=== PATIENT | male | born 1960 | race Caucasian/White ===

== ENCOUNTER 2021-06-27 12:26 | Inpatient (IN) ==
[2021-06-27 12:33] VITALS: BMI 29.2
[2021-06-27] MEDS ORDERED: PEPCID 20 MG IV PREMIX* 20 MG/50 ML BAG IV ONE (13:36)
--- NOTE | 2021-06-27 13:38 | DR.ABDMALE ---
HPI Time seen Time Seen by Provider: 06/27/21 13:24 PCP Primary Care Physician: GERALDO Complaint Chief Complaint:: PT A/CO LOWER ABD CRAMPING, WITH BLOODY STOOL. PATIENT STATES IT WAS A GROSS AMOUNT THAT WAS RED AND [place] IN COLOR DESCRIBED. PATIENT STATES HE HAS SINCE BEEN HAVING DIAHRREA HE STATES HE IS HAVING STOOL MIXED WITH BLOOD. PATIENT STATES HE HAS HAD X 2-3 BM THIS MORNING. COVID-19 Coronavirus risk:travel/contact w/high risk person: No Has patient experienced Coronavirus symptoms: Yes Coronavirus symptoms experienced: Fever Mode of arrival Mode of Arrival: Ambulatory Timing Onset of Chief Complaint: 06/26/21 PMH PMH Past Medical History: Yes Past Medical History: Depression, Dyslipidemia and Hypertension Past Medical History Comment: PROSTATE ISSUES Past Surgical History: No Family History History of Family Medical Conditions: No Social History Does any household member use tobacco: No Alcohol Use: Occasionally Do you use any recreational Drugs:: Yes Lives With: Mom Lives Where: Home Travel Risk Coronavirus risk:travel/contact w/high risk person: No Has patient experienced Coronavirus symptoms: Yes Coronavirus symptoms experienced: Fever Infectious screening In the last 2 months have you had wt loss of >10#?: NO Have you had fever, night sweats or hemotysis?: No Have you traveled outside the country in the last 6 months?: No Isolation: Standard PE Vital Signs Vital Signs: Temp Pulse Pulse Resp BP BP Pulse Ox 06/27/21 16:00 78 22 106/55 99 06/27/21 15:45 77 20 119/59 99 06/27/21 15:30 79 20 96/63 99 06/27/21 15:00 79 20 88/51 99 06/27/21 14:30 82 20 102/58 99 06/27/21 14:00 78 20 110/62 99 06/27/21 13:30 79 20 84/62 96 06/27/21 12:27 99.9 F H 100 H 20 109/70 95 ROR Labs Reviewed Result Diagrams: 06/28/21 03:54 06/28/21 03:54 Laboratory: WBC 15.8 X10^3/uL (3.6-10.0) H 06/27/21 14:00 RBC 4.84 X10^6/uL (4.7-6.0) 06/27/21 14:00 Hgb 14.0 g/dL (13.5-18.0) 06/27/21 14:00 Hct 41.5 % (42.0-54.0) L 06/27/21 14:00 MCV 85.6 fL (80.0-100.0) 06/27/21 14:00 MCH 29.0 pg (27.0-34.0) 06/27/21 14:00 MCHC 33.8 g/dL (33.0-35.0) 06/27/21 14:00 RDW 14.1 % (11.6-16.5) 06/27/21 14:00 Plt Count 254 X10^3/uL (150.0-450.0) 06/27/21 14:00 MPV 7.8 fL (7.4-11.0) 06/27/21 14:00 Neut % (Auto) 87.2 % (42.0-75.0) H 06/27/21 14:00 Lymph % (Auto) 8.2 % (21.0-51.0) L 06/27/21 14:00 [place] % (Auto) 4.5 % (0.0-13.0) 06/27/21 14:00 Eos % (Auto) 0.0 % (0.9-2.9) L 06/27/21 14:00 Baso % (Auto) 0.1 % (0.2-1.0) L 06/27/21 14:00 Neut # (Auto) 13.7 x10^3/uL (2.2-4.8) H 06/27/21 14:00 Lymph # (Auto) 1.3 X10^3/uL (1.3-2.9) 06/27/21 14:00 [place] # (Auto) 0.7 x10^3/uL (0.3-0.8) 06/27/21 14:00 Eos # (Auto) 0.0 x10^3/uL (0.0-0.2) 06/27/21 14:00 Baso # (Auto) 0.0 X10^3/uL (0.0-0.1) 06/27/21 14:00 Absolute Nucleated RBC 0.0 /100WBC 06/27/21 14:00 PT 13.4 SECONDS (11.8-14.3) 06/27/21 14:00 INR Target Range - 06/27/21 14:00 INR 1.08 (0.8-1.3) 06/27/21 14:00 APTT 31.1 SECONDS (22.9-36.5) 06/27/21 14:00 PTT Comment - 06/27/21 14:00 Sodium 137 mmol/L (136-145) 06/27/21 14:00 Corrected Sodium 137 mmol/L (136-145) 06/27/21 14:00 Potassium 3.6 mmol/L (3.5-5.1) 06/27/21 14:00 Chloride 100 mmol/L (98-107) 06/27/21 14:00 Carbon Dioxide 28.2 mmol/L (21-32) 06/27/21 14:00 BUN 19 mg/dL (7-18) H 06/27/21 14:00 Creatinine 1.71 mg/dL (0.70-1.30) H 06/27/21 14:00 Est GFR (MDRD) Af Amer 52 (>60) L 06/27/21 14:00 Est GFR (MDRD) Non-Af 43 (>60) L 06/27/21 14:00 Glucose 119 mg/dL (65-99) H 06/27/21 14:00 Calcium 9.0 mg/dL (8.5-10.1) 06/27/21 14:00 Corrected Calcium TNP 06/27/21 14:00 Total Bilirubin 0.90 mg/dL (0.2-1.0) 06/27/21 14:00 AST 21 Units/L (15-37) 06/27/21 14:00 ALT 29 Units/L (12-78) 06/27/21 14:00 Alkaline Phosphatase 67 Units/L (46-116) 06/27/21 14:00 Total Protein 7.4 g/dL (6.4-8.2) 06/27/21 14:00 Albumin 3.6 g/dL (3.4-5.0) 06/27/21 14:00 Globulin 3.8 g/dL (2.5-4.5) 06/27/21 14:00 Albumin/Globulin Ratio 0.9 Ratio (1.1-2.1) L 06/27/21 14:00 Amylase 51 Units/L (25-115) 06/27/21 14:00 Lipase 103 Units/L (73-393) 06/27/21 14:00 Vasoact Intest Polypep Cancelled 06/27/21 14:00 Opioid Opioid Risk Tool Age (Doc box if 16-45): No History of Preadolescent Sexual Abuse: No Total: 0 Total Score Risk Category: Low Risk Copyright: Scott SHELTON predicting aberrant behaviors
[2021-06-27] MEDS ORDERED: NS 1,000 ML IV 1,000 ML ONE (13:41)
[2021-06-27] MEDS ORDERED: PEPCID 20 MG IV PREMIX* 50 ML IV ONE (13:42)
[2021-06-27] MEDS ORDERED: NS 1,000 ML IV 1,000 ML IV SCH (14:00)
[2021-06-27 14:20] LABS: BASOPHILS % (AUTO) 0.1 % (0.2-1.0); HEMATOCRIT 41.5 % (42.0-54.0); LYMPHOCYTES # (AUTO) 1.3 X10^3/uL (1.3-2.9); LYMPHOCYTES % (AUTO) 8.2 % (21.0-51.0); MEAN CORPUSCULAR HGB CONC 33.8 g/dL (33.0-35.0); MEAN CORPUSCULAR VOLUME 85.6 fL (80.0-100.0); MEAN PLATELET VOLUME 7.8 fL (7.4-11.0); MONOCYTES # (AUTO) 0.7 x10^3/uL (0.3-0.8); MONOCYTES % (AUTO) 4.5 % (0.0-13.0); NEUTROPHILS # (AUTO) 13.7 x10^3/uL (2.2-4.8); NEUTROPHILS % (AUTO) 87.2 % (42.0-75.0); PLATELET COUNT 254 X10^3/uL (150.0-450.0); RED BLOOD COUNT 4.84 X10^6/uL (4.7-6.0); RED CELL DISTRIBUTION WIDTH 14.1 % (11.6-16.5); WHITE BLOOD COUNT 15.8 X10^3/uL (3.6-10.0)
[2021-06-27 14:39] LABS: ALANINE AMINOTRANSFERASE 29 Units/L (12-78); ALBUMIN 3.6 g/dL (3.4-5.0); ALKALINE PHOSPHATASE 67 Units/L (46-116); AMYLASE 51 Units/L (25-115); ASPARTATE AMINO TRANSFERASE 21 Units/L (15-37); BLOOD UREA NITROGEN 19 mg/dL (7-18); CARBON DIOXIDE 28.2 mmol/L (21-32); CHLORIDE 100 mmol/L (98-107); COR NA(FOR HYPERGLY) 137 mmol/L (136-145); CREATININE 1.71 mg/dL (0.70-1.30); LIPASE 103 Units/L (73-393); SODIUM 137 mmol/L (136-145); TOTAL PROTEIN 7.4 g/dL (6.4-8.2); eGFR NON BLACK RACES 43 (>60)
--- NOTE | 2021-06-27 14:53 | CT ---
HISTORYABD CRAMPING, WITH BLOODY STOOL. PATIENT STATES HE HAS SINCE BEEN HAVING DIAHRREA HE STATES HE IS HAVING STOOL MIXED WITH BLOOD. PATIENT STATES HE HAS HAD X 2-3 BM THIS MORNING. .brSTUDYABDOMEN/PELVIS W/O CONCOMPARISONNone.TECHNIQUEMultiple axial images of the abdomen and pelvis were obtained from the lung bases to the pubic symphysis without the administration of IV contrast. Dose reduction techniques including Automated Exposure Control (AEC) and adjustment of mA and kV were utilized.FINDINGSLack of contrast limits evaluation.There is a right lower lobe pleural based calcified 8 mm granuloma. Otherwise the lung bases appear clear. Heart is normal in size. There is hepatic steatosis. The gallbladder, spleen, pancreas, and adrenal glands have a benign noncontrast appearance. There are few left nephrolithiasis measuring up to 8 mm at the lower pole. There is a 5 mm right renal pelvis calculus. No hydronephrosis. Urinary bladder is mostly decompressed. The prostate is normal in size. There is mild colonic wall thickening at the sigmoid colon and rectum. There is perforation at the sigmoid colon with moderate fat stranding in free air. See image 60 series 3 for example. The colon wall measures 9 mm in this location. There is colonic diverticulosis. The appendix appears normal. Negative for bowel obstruction. Moderately atherosclerotic normal caliber abdominal aorta. No abscess at this point. Small fat containing umbilical hernia. No acute osseous abnormality. Compression fracture at T12 with approximately 40 percent height loss anteriorly is likely chronic.IMPRESSIONPerforation of the sigmoid colon with moderate free air and fat stranding. This may be due to perforated diverticulitis or neoplasm. Recommend emergent surgical consultation.Other incidental findings as above.Electronically signed by: Adrien Bullock (Jun 27, 2021 14:52:41)
[2021-06-27] MEDS ORDERED: NS 100 ML IV + SPIKE MINIBAG* 100 ML IV ONE (16:06)
[2021-06-27] MEDS ORDERED: ZOSYN VIAL 3.375 GRAMS IV ONE (16:06)
--- NOTE | 2021-06-27 16:27 | RAD ---
HISTORYPRE OP BOWEL SX HTN, DYSLIPIDEMIASTUDYCHEST, 1 VIEWCOMPARISONNoneFINDINGSThe trachea is midline. The cardiac silhouette is unremarkable. The lungs are clear without focal infiltrate or effusion. The bony thorax is unremarkable.IMPRESSIONNo acute cardiopulmonary findings .Electronically signed by: Nereida Segura (Jun 27, 2021 16:26:17)
[2021-06-27] MEDS: ZOSYN VIAL 3.375 GRAMS 3.375 G in NS 100 ML IV + SPIKE MINIBAG* 100 ML IV SCH ×2 (16:32→21:38)
[2021-06-27] MEDS ORDERED: D5W 1,000 ML IV 0 ML IV ONE (16:42)
[2021-06-27] MEDS ORDERED: D5 1/2 NS 1,000 ML 1,000 ML IV ONE (16:48)
[2021-06-27] MEDS ORDERED: FENTANYL VIAL INJ 250 mcg ONE (16:59)
[2021-06-27] MEDS ORDERED: BRIDION ONE (16:59)
[2021-06-27] MEDS ORDERED: LR 1,000 ML IV 1,000 ML IV ONE (16:59)
[2021-06-27] MEDS ORDERED: ZEMURON 50 MG VIAL ONE (17:00)
[2021-06-27] MEDS ORDERED: D5 1/2 NS 1,000 ML 1,000 ML IV SCH ×2 (17:00→19:20)
[2021-06-27] MEDS ORDERED: VERSED ONE (17:34)
[2021-06-27] MEDS ORDERED: DIPRIVAN VIAL ONE (17:34)
[2021-06-27] MEDS ORDERED: EPHEDRINE SULFATE INJ ONE (17:34)
[2021-06-27] MEDS ORDERED: ZOFRAN INJ 4 MG VIAL ONE (17:34)
[2021-06-27] MEDS ORDERED: TORADOL 30 MG VIAL ONE (17:34)
[2021-06-27] MEDS ORDERED: SUPRANE ONE ×2 (17:34→17:56)
[2021-06-27] MEDS ORDERED: NEO-SYNEPHRINE INJ ONE (17:34)
[2021-06-27] MEDS ORDERED: XYLOCAINE 2 % (PLAIN) ONE (17:34)
[2021-06-27] MEDS ORDERED: OFIRMEV IV 1000 MG VIAL 1,000 MG/100 ML VIAL IV ONE (18:09)
[2021-06-27] MEDS ORDERED: ANCEF VIAL 1 GRAM ONE (18:09)
[2021-06-27] MEDS ORDERED: BACTROBAN TOPICAL OINT ONE (18:13)
[2021-06-27] MEDS ORDERED: PEPCID 20 MG IV PREMIX* 20 MG/50 ML BAG IV PRN (18:25)
[2021-06-27] MEDS ORDERED: ZOFRAN INJ 4 MG VIAL IVP PRN ×2 (18:25→18:50)
[2021-06-27] MEDS ORDERED: DILAUDID INJ IVP PRN ×2 (18:25→18:50)
[2021-06-27] MEDS ORDERED: PHENERGAN INJ 25 MG IM PRN (18:50)
[2021-06-27] MEDS ORDERED: BENADRYL INJ 50 MG VIAL IVP PRN (18:50)
[2021-06-27] MEDS ORDERED: REGLAN INJ 10 MG VIAL IVP PRN (18:50)
[2021-06-27] MEDS ORDERED: BARHEMSYS INJ IVP PRN (18:50)
[2021-06-27 19:14] LABS: BILIRUBIN,URINE NEGATIVE (NEGATIVE); BLOOD/HEMOGLOBIN,URINE 1+ (NEGATIVE); GLUCOSE, URINE 1+ (NEGATIVE); KETONES,URINE NEGATIVE (NEGATIVE); LEUKOCYTE ESTERASE ,URINE NEGATIVE (NEGATIVE); NITRITES,URINE NEGATIVE (NEGATIVE); PROTEIN,URINE 2+ (NEGATIVE); UROBILINOGEN,URINE NORMAL (NORMAL)
[2021-06-27] MEDS: D5 1/2 NS 1,000 ML 1,000 ML IV SCH (19:30)
[2021-06-27 19:35] LABS: APPEARANCE,URINE CLEAR (CLEAR); COLOR,URINE PALE YELLOW (YELLOW)
[2021-06-27 19:37] LABS: AMORPHOUS SEDIMENT,UR TRACE /HPF (NEGATIVE); BACTERIA,URINE TRACE /HPF (NEGATIVE); SQUAMOUS EPITHELIAL CELL,UR RARE /HPF (NEGATIVE)
[2021-06-27 20:13] LABS: BASOPHILS % (AUTO) 0.1 % (0.2-1.0); EOSINOPHILS % (AUTO) 0.1 % (0.9-2.9); HEMATOCRIT 35.5 % (42.0-54.0); HEMOGLOBIN 12.1 g/dL (13.5-18.0); LYMPHOCYTES # (AUTO) 0.9 X10^3/uL (1.3-2.9); LYMPHOCYTES % (AUTO) 7.4 % (21.0-51.0); MEAN CORPUSCULAR HEMOGLOBIN 29.3 pg (27.0-34.0); MEAN CORPUSCULAR HGB CONC 33.9 g/dL (33.0-35.0); MEAN CORPUSCULAR VOLUME 86.3 fL (80.0-100.0); MEAN PLATELET VOLUME 7.6 fL (7.4-11.0); MONOCYTES # (AUTO) 0.6 x10^3/uL (0.3-0.8); MONOCYTES % (AUTO) 4.5 % (0.0-13.0); NEUTROPHILS # (AUTO) 11.2 x10^3/uL (2.2-4.8); NEUTROPHILS % (AUTO) 87.9 % (42.0-75.0); PLATELET COUNT 194 X10^3/uL (150.0-450.0); RED BLOOD COUNT 4.12 X10^6/uL (4.7-6.0); RED CELL DISTRIBUTION WIDTH 13.8 % (11.6-16.5); WHITE BLOOD COUNT 12.8 X10^3/uL (3.6-10.0)
[2021-06-27] MEDS ORDERED: FLAGYL IV PREMIX 500 MG BAG 500 MG/100 ML BAG IV ONE ×2 (20:20)
[2021-06-27 20:26] LABS: ALBUMIN 2.9 g/dL (3.4-5.0); CALCIUM 7.6 mg/dL (8.5-10.1); CARBON DIOXIDE 24.4 mmol/L (21-32); COR CA(FOR HYPOALB) 8.5 mg/dL (8.5-10.1); CREATININE 1.63 mg/dL (0.70-1.30); TOTAL PROTEIN 6.2 g/dL (6.4-8.2)
[2021-06-27] MEDS: FLAGYL IV PREMIX 500 MG BAG 500 MG/100 ML BAG IV SCH (20:35)
[2021-06-27] MEDS ORDERED: FLAGYL IV PREMIX 500 MG BAG 500 MG/100 ML BAG IV SCH ×2 (21:00)
[2021-06-27] MEDS ORDERED: ZOSYN VIAL 3.375 GRAMS 3.375 G in NS 100 ML IV + SPIKE MINIBAG* 100 ML IV SCH (22:00)
[2021-06-28] MEDS: D5 1/2 NS 1,000 ML 1,000 ML IV SCH ×3 (02:32→14:35)
[2021-06-28] MEDS: FLAGYL IV PREMIX 500 MG BAG 500 MG/100 ML BAG IV SCH ×4 (02:32→21:00)
[2021-06-28] MEDS: DILAUDID INJ IVP PRN ×3 (02:38→13:41)
[2021-06-28 05:07] LABS: BASOPHILS % (AUTO) 0.3 % (0.2-1.0); EOSINOPHILS # (AUTO) 0.1 x10^3/uL (0.0-0.2); EOSINOPHILS % (AUTO) 0.5 % (0.9-2.9); HEMATOCRIT 34.8 % (42.0-54.0); HEMOGLOBIN 11.7 g/dL (13.5-18.0); LYMPHOCYTES # (AUTO) 1.4 X10^3/uL (1.3-2.9); MEAN CORPUSCULAR HEMOGLOBIN 29.3 pg (27.0-34.0); MEAN CORPUSCULAR HGB CONC 33.7 g/dL (33.0-35.0); MEAN CORPUSCULAR VOLUME 86.8 fL (80.0-100.0); MEAN PLATELET VOLUME 8.2 fL (7.4-11.0); MONOCYTES # (AUTO) 0.6 x10^3/uL (0.3-0.8); NEUTROPHILS # (AUTO) 9.3 x10^3/uL (2.2-4.8); NEUTROPHILS % (AUTO) 82.2 % (42.0-75.0); PLATELET COUNT 192 X10^3/uL (150.0-450.0); RED CELL DISTRIBUTION WIDTH 14.3 % (11.6-16.5); WHITE BLOOD COUNT 11.3 X10^3/uL (3.6-10.0)
[2021-06-28] MEDS: ZOSYN VIAL 3.375 GRAMS 3.375 G in NS 100 ML IV + SPIKE MINIBAG* 100 ML IV SCH ×3 (05:08→22:25)
[2021-06-28 05:26] LABS: ALANINE AMINOTRANSFERASE 23 Units/L (12-78); ALKALINE PHOSPHATASE 64 Units/L (46-116); ASPARTATE AMINO TRANSFERASE 14 Units/L (15-37); BLOOD UREA NITROGEN 19 mg/dL (7-18); CALCIUM 7.9 mg/dL (8.5-10.1); CHLORIDE 104 mmol/L (98-107); COR CA(FOR HYPOALB) 8.7 mg/dL (8.5-10.1); CREATININE 1.46 mg/dL (0.70-1.30); SODIUM 138 mmol/L (136-145); TOTAL PROTEIN 6.4 g/dL (6.4-8.2); eGFR NON BLACK RACES 52 (>60)
[2021-06-28] MEDS ORDERED: KLOR-CON PO PRN (06:23)
[2021-06-28] MEDS ORDERED: POTASSIUM CHLORIDE LIQ 20 MEQ UDC PO PRN (06:23)
[2021-06-28] MEDS ORDERED: MICRO K EXTEN CAP 10 MEQ PO PRN (06:23)
[2021-06-28] MEDS ORDERED: POTASSIUM CHL 60 MEQ/NS 0.45% 500 ML IV PRN (06:23)
[2021-06-28] MEDS ORDERED: K-RIDER 10 MEQ/NS 100 ML 10 MEQ/100 ML BAG IV PRN (06:23)
[2021-06-28] MEDS ORDERED: POTASSIUM CHL 40 MEQ/NS 0.45% 500 ML IV PRN (06:23)
--- NOTE | 2021-06-28 11:11 | DR.PROGNOT ---
Hospital Progress Notes - Progress Note for Day of: Progress Note Date: 06/28/21 - Chief Complaint Chief Complaint: comfortable . still c/o moderate lower abdominal pain . mild drainage in EAN. normal CBC and CMP .. . - Past Medical Family Social History Past Med/Fam/Surg Hx: No changes since H&P Allergies: Allergies No Known Drug Allergies Allergy (Verified 06/27/21 12:27) - Review Of Systems ROS: No change since H&P - Vital Signs Vital Signs: Temperature 98.5 F Pulse Rate [Right Radial] 78 Pulse Rate 83 Respiratory Rate 20 Blood Pressure [Right Arm] 132/67 Blood Pressure 110/56 O2 Sat by Pulse Oximetry 98 - Physical Exam Oriented: Normal Eyes: Normal Ear: Normal Nose: Normal Throat: Normal Respiratory: Normal Cardiovascular: Normal : Normal GI:Auscultation: Normal GI:Palpation: Normal GI: Tenderness: Diffuse (soft, flat abdomen .diffuse tenderness .. BS +but hypoactive .. ) Mood Description: Calm Speech Pattern: Clear, Appropriate - Laboratory and Diagnostics Result Diagrams: 06/28/21 03:54 06/28/21 03:54 Labs: Laboratory WBC 11.3 X10^3/uL (3.6-10.0) H 06/28/21 03:54 RBC 4.00 X10^6/uL (4.7-6.0) L 06/28/21 03:54 Hgb 11.7 g/dL (13.5-18.0) L 06/28/21 03:54 Hct 34.8 % (42.0-54.0) L 06/28/21 03:54 MCV 86.8 fL (80.0-100.0) 06/28/21 03:54 MCH 29.3 pg (27.0-34.0) 06/28/21 03:54 MCHC 33.7 g/dL (33.0-35.0) 06/28/21 03:54 RDW 14.3 % (11.6-16.5) 06/28/21 03:54 Plt Count 192 X10^3/uL (150.0-450.0) 06/28/21 03:54 MPV 8.2 fL (7.4-11.0) 06/28/21 03:54 Neut % (Auto) 82.2 % (42.0-75.0) H 06/28/21 03:54 Lymph % (Auto) 12.0 % (21.0-51.0) L 06/28/21 03:54 [place] % (Auto) 5.0 % (0.0-13.0) 06/28/21 03:54 Eos % (Auto) 0.5 % (0.9-2.9) L 06/28/21 03:54 Baso % (Auto) 0.3 % (0.2-1.0) 06/28/21 03:54 Neut # (Auto) 9.3 x10^3/uL (2.2-4.8) H 06/28/21 03:54 Lymph # (Auto) 1.4 X10^3/uL (1.3-2.9) 06/28/21 03:54 [place] # (Auto) 0.6 x10^3/uL (0.3-0.8) 06/28/21 03:54 Eos # (Auto) 0.1 x10^3/uL (0.0-0.2) 06/28/21 03:54 Baso # (Auto) 0.0 X10^3/uL (0.0-0.1) 06/28/21 03:54 Absolute Nucleated RBC 0.1 /100WBC 06/28/21 03:54 PT 13.4 SECONDS (11.8-14.3) 06/27/21 14:00 INR Target Range - 06/27/21 14:00 INR 1.08 (0.8-1.3) 06/27/21 14:00 APTT 31.1 SECONDS (22.9-36.5) 06/27/21 14:00 PTT Comment - 06/27/21 14:00 Sodium 138 mmol/L (136-145) 06/28/21 03:54 Corrected Sodium TNP 06/28/21 03:54 Potassium 3.2 mmol/L (3.5-5.1) L 06/28/21 03:54 Chloride 104 mmol/L (98-107) 06/28/21 03:54 Carbon Dioxide 25.0 mmol/L (21-32) 06/28/21 03:54 BUN 19 mg/dL (7-18) H 06/28/21 03:54 Creatinine 1.46 mg/dL (0.70-1.30) H 06/28/21 03:54 Est GFR (MDRD) Af Amer > 60 (>60) 06/28/21 03:54 Est GFR (MDRD) Non-Af 52 (>60) L 06/28/21 03:54 Glucose 95 mg/dL (65-99) 06/28/21 03:54 Calcium 7.9 mg/dL (8.5-10.1) L 06/28/21 03:54 Corrected Calcium 8.7 mg/dL (8.5-10.1) 06/28/21 03:54 Magnesium 2.0 mg/dL (1.7-2.9) 06/28/21 03:54 Total Bilirubin 0.80 mg/dL (0.2-1.0) 06/28/21 03:54 AST 14 Units/L (15-37) L 06/28/21 03:54 ALT 23 Units/L (12-78) 06/28/21 03:54 Alkaline Phosphatase 64 Units/L (46-116) 06/28/21 03:54 Total Protein 6.4 g/dL (6.4-8.2) 06/28/21 03:54 Albumin 3.0 g/dL (3.4-5.0) L 06/28/21 03:54 Globulin 3.4 g/dL (2.5-4.5) 06/28/21 03:54 Albumin/Globulin Ratio 0.9 Ratio (1.1-2.1) L 06/28/21 03:54 Amylase 51 Units/L (25-115) 06/27/21 14:00 Lipase 103 Units/L (73-393) 06/27/21 14:00 Vasoact Intest Polypep Cancelled 06/27/21 14:00 Specimen Type Catherized urine 06/27/21 17:40 Urine Color Pale yellow (YELLOW) 06/27/21 17:40 Urine Appearance Clear (CLEAR) 06/27/21 17:40 Urine pH 5.0 (5.0 - 8.0) 06/27/21 17:40 Ur Specific [place] 1.020 (1.000-1.030) 06/27/21 17:40 Urine Protein 2+ (NEGATIVE) 06/27/21 17:40 Urine Glucose (UA) 1+ (NEGATIVE) 06/27/21 17:40 Urine Ketones Negative (NEGATIVE) 06/27/21 17:40 Urine Occult Blood 1+ (NEGATIVE) 06/27/21 17:40 Urine Nitrite Negative (NEGATIVE) 06/27/21 17:40 Urine Bilirubin Negative (NEGATIVE) 06/27/21 17:40 Urine Urobilinogen Normal (NORMAL) 06/27/21 17:40 Ur Leukocyte Esterase Negative (NEGATIVE) 06/27/21 17:40 Urine RBC 5-10 /HPF (0-3) A 06/27/21 17:40 Urine WBC 0-2 /HPF (0-5) 06/27/21 17:40 Ur Squamous Epith Cells Rare /HPF (NEGATIVE) 06/27/21 17:40 Amorphous Sediment Trace /HPF (NEGATIVE) 06/27/21 17:40 Urine Bacteria Trace /HPF (NEGATIVE) 06/27/21 17:40 Ur Culture Indicated? No/not indicated 06/27/21 17:40 SARS CoV-2 RNA Rapid VIVIAN Negative (NEGATIVE) 06/27/21 16:06 Rhythm: NSR - Assessment and Plan 1: post op laparoscopy , irregation and drainage of pelvis . plication upper rectum with omentum .. to d/c NGT , keep NPO , IV ABT , OOB , DVT prophylaxis ..
[2021-06-28] MEDS: NORCO 5/325 MG TAB PO PRN ×2 (17:10→22:30)
--- NOTE | 2021-06-28 22:22 | PCM.PROG ---
Progress Note - Subjective Subjective: PATIENT IS A 60 YEAR OLD WM WHO WAS ADMITTED DUE TO PERFORATED BOWEL. PATIENT IS S/P LAP EXP LAP. PATIENT TOLERATED PROCEDURE WELL. PATIENT UNCONTROLLED PAIN. NO OTHER CONCERNS AT PRESET. DRESSINGS CDI. EAN DRAIN INTACT, NGT TO LIWS. - Past Medical Family Social History Past Med/Fam/Surg Hx: No changes since H&P Allergies: Allergies No Known Drug Allergies Allergy (Verified 06/27/21 12:27) - Review of Systems ROS: No change since H&P - Vital Signs and I&O's Vital Signs: Temperature 98.5 F Pulse Rate [Right Radial] 76 Pulse Rate 83 Respiratory Rate 18 Blood Pressure [Right Arm] 125/80 Blood Pressure 110/56 O2 Sat by Pulse Oximetry 98 Intake and Output: Intake & Output 06/25/21 06/26/21 06/27/21 06/28/21 23:59 23:59 23:59 23:59 Intake Total 4069 / 4069 1749 / 1749 Output Total 2565 / 2565 1385 / 1385 Balance 1504 / 1504 364 / 364 - Physical Exam Oriented: Normal, Time, Person, Place Eyes: Normal Ear: Normal Nose: Normal Throat: Normal Respiratory: Normal Cardiovascular: Normal : Normal Auscultation: Bowel Sounds: Normal Palpation: Normal Tenderness: Diffuse (soft, flat abdomen .diffuse tenderness .. BS +but hypoactive .. ), Other (EAN DRAIN, DRESSING CDI LAP SITES) Skin: Normal Musculoskeletal: Normal Psychiatric: Normal Mood Description: Calm Affect: Normal Speech Pattern: Clear, Appropriate - Laboratory and Diagnostics Result Diagrams: 06/28/21 03:54 06/28/21 03:54 Labs: Laboratory WBC 11.3 X10^3/uL (3.6-10.0) H 06/28/21 03:54 RBC 4.00 X10^6/uL (4.7-6.0) L 06/28/21 03:54 Hgb 11.7 g/dL (13.5-18.0) L 06/28/21 03:54 Hct 34.8 % (42.0-54.0) L 06/28/21 03:54 MCV 86.8 fL (80.0-100.0) 06/28/21 03:54 MCH 29.3 pg (27.0-34.0) 06/28/21 03:54 MCHC 33.7 g/dL (33.0-35.0) 06/28/21 03:54 RDW 14.3 % (11.6-16.5) 06/28/21 03:54 Plt Count 192 X10^3/uL (150.0-450.0) 06/28/21 03:54 MPV 8.2 fL (7.4-11.0) 06/28/21 03:54 Neut % (Auto) 82.2 % (42.0-75.0) H 06/28/21 03:54 Lymph % (Auto) 12.0 % (21.0-51.0) L 06/28/21 03:54 [place] % (Auto) 5.0 % (0.0-13.0) 06/28/21 03:54 Eos % (Auto) 0.5 % (0.9-2.9) L 06/28/21 03:54 Baso % (Auto) 0.3 % (0.2-1.0) 06/28/21 03:54 Neut # (Auto) 9.3 x10^3/uL (2.2-4.8) H 06/28/21 03:54 Lymph # (Auto) 1.4 X10^3/uL (1.3-2.9) 06/28/21 03:54 [place] # (Auto) 0.6 x10^3/uL (0.3-0.8) 06/28/21 03:54 Eos # (Auto) 0.1 x10^3/uL (0.0-0.2) 06/28/21 03:54 Baso # (Auto) 0.0 X10^3/uL (0.0-0.1) 06/28/21 03:54 Absolute Nucleated RBC 0.1 /100WBC 06/28/21 03:54 PT 13.4 SECONDS (11.8-14.3) 06/27/21 14:00 INR Target Range - 06/27/21 14:00 INR 1.08 (0.8-1.3) 06/27/21 14:00 APTT 31.1 SECONDS (22.9-36.5) 06/27/21 14:00 PTT Comment - 06/27/21 14:00 Sodium 138 mmol/L (136-145) 06/28/21 03:54 Corrected Sodium TNP 06/28/21 03:54 Potassium 3.2 mmol/L (3.5-5.1) L 06/28/21 03:54 Chloride 104 mmol/L (98-107) 06/28/21 03:54 Carbon Dioxide 25.0 mmol/L (21-32) 06/28/21 03:54 BUN 19 mg/dL (7-18) H 06/28/21 03:54 Creatinine 1.46 mg/dL (0.70-1.30) H 06/28/21 03:54 Est GFR (MDRD) Af Amer > 60 (>60) 06/28/21 03:54 Est GFR (MDRD) Non-Af 52 (>60) L 06/28/21 03:54 Glucose 95 mg/dL (65-99) 06/28/21 03:54 Calcium 7.9 mg/dL (8.5-10.1) L 06/28/21 03:54 Corrected Calcium 8.7 mg/dL (8.5-10.1) 06/28/21 03:54 Magnesium 2.0 mg/dL (1.7-2.9) 06/28/21 03:54 Total Bilirubin 0.80 mg/dL (0.2-1.0) 06/28/21 03:54 AST 14 Units/L (15-37) L 06/28/21 03:54 ALT 23 Units/L (12-78) 06/28/21 03:54 Alkaline Phosphatase 64 Units/L (46-116) 06/28/21 03:54 Total Protein 6.4 g/dL (6.4-8.2) 06/28/21 03:54 Albumin 3.0 g/dL (3.4-5.0) L 06/28/21 03:54 Globulin 3.4 g/dL (2.5-4.5) 06/28/21 03:54 Albumin/Globulin Ratio 0.9 Ratio (1.1-2.1) L 06/28/21 03:54 Amylase 51 Units/L (25-115) 06/27/21 14:00 Lipase 103 Units/L (73-393) 06/27/21 14:00 Vasoact Intest Polypep Cancelled 06/27/21 14:00 Specimen Type Catherized urine 06/27/21 17:40 Urine Color Pale yellow (YELLOW) 06/27/21 17:40 Urine Appearance Clear (CLEAR) 06/27/21 17:40 Urine pH 5.0 (5.0 - 8.0) 06/27/21 17:40 Ur Specific [place] 1.020 (1.000-1.030) 06/27/21 17:40 Urine Protein 2+ (NEGATIVE) 06/27/21 17:40 Urine Glucose (UA) 1+ (NEGATIVE) 06/27/21 17:40 Urine Ketones Negative (NEGATIVE) 06/27/21 17:40 Urine Occult Blood 1+ (NEGATIVE) 06/27/21 17:40 Urine Nitrite Negative (NEGATIVE) 06/27/21 17:40 Urine Bilirubin Negative (NEGATIVE) 06/27/21 17:40 Urine Urobilinogen Normal (NORMAL) 06/27/21 17:40 Ur Leukocyte Esterase Negative (NEGATIVE) 06/27/21 17:40 Urine RBC 5-10 /HPF (0-3) A 06/27/21 17:40 Urine WBC 0-2 /HPF (0-5) 06/27/21 17:40 Ur Squamous Epith Cells Rare /HPF (NEGATIVE) 06/27/21 17:40 Amorphous Sediment Trace /HPF (NEGATIVE) 06/27/21 17:40 Urine Bacteria Trace /HPF (NEGATIVE) 06/27/21 17:40 Ur Culture Indicated? No/not indicated 06/27/21 17:40 SARS CoV-2 RNA Rapid VIVIAN Negative (NEGATIVE) 06/27/21 16:06 - Plan (1) Abdominal pain Status: Acute (2) Perforated bowel Status: Acute Plan: FOLLOW GENERAL SURGEON RECOMMENDATIONS. NGT TO LIWS. NPO. REPEAT LABS. IV FLUIDS. CONT IV ABX
[2021-06-29] MEDS: D5 1/2 NS 1,000 ML 1,000 ML IV SCH ×4 (00:52→20:20)
[2021-06-29] MEDS: FLAGYL IV PREMIX 500 MG BAG 500 MG/100 ML BAG IV SCH ×4 (03:29→20:20)
[2021-06-29] MEDS: ZOSYN VIAL 3.375 GRAMS 3.375 G in NS 100 ML IV + SPIKE MINIBAG* 100 ML IV SCH ×3 (05:18→21:24)
[2021-06-29] MEDS: NORCO 5/325 MG TAB PO PRN ×4 (05:24→20:21)
[2021-06-29 05:48] LABS: BASOPHILS % (AUTO) 0.3 % (0.2-1.0); EOSINOPHILS # (AUTO) 0.2 x10^3/uL (0.0-0.2); EOSINOPHILS % (AUTO) 2.5 % (0.9-2.9); HEMATOCRIT 32.5 % (42.0-54.0); HEMOGLOBIN 11.3 g/dL (13.5-18.0); LYMPHOCYTES # (AUTO) 1.1 X10^3/uL (1.3-2.9); LYMPHOCYTES % (AUTO) 13.1 % (21.0-51.0); MEAN CORPUSCULAR HEMOGLOBIN 29.6 pg (27.0-34.0); MEAN CORPUSCULAR HGB CONC 34.7 g/dL (33.0-35.0); MEAN CORPUSCULAR VOLUME 85.3 fL (80.0-100.0); MEAN PLATELET VOLUME 7.8 fL (7.4-11.0); MONOCYTES # (AUTO) 0.6 x10^3/uL (0.3-0.8); MONOCYTES % (AUTO) 6.4 % (0.0-13.0); NEUTROPHILS # (AUTO) 6.7 x10^3/uL (2.2-4.8); NEUTROPHILS % (AUTO) 77.7 % (42.0-75.0); PLATELET COUNT 185 X10^3/uL (150.0-450.0); RED BLOOD COUNT 3.81 X10^6/uL (4.7-6.0); RED CELL DISTRIBUTION WIDTH 13.7 % (11.6-16.5); WHITE BLOOD COUNT 8.6 X10^3/uL (3.6-10.0)
[2021-06-29 06:00] LABS: ALANINE AMINOTRANSFERASE 21 Units/L (12-78); ALKALINE PHOSPHATASE 58 Units/L (46-116); ASPARTATE AMINO TRANSFERASE 20 Units/L (15-37); BLOOD UREA NITROGEN 10 mg/dL (7-18); CALCIUM 8.2 mg/dL (8.5-10.1); CARBON DIOXIDE 26.8 mmol/L (21-32); CHLORIDE 104 mmol/L (98-107); CREATININE 1.21 mg/dL (0.70-1.30); MAGNESIUM 1.9 mg/dL (1.7-2.9); SODIUM 139 mmol/L (136-145); TOTAL PROTEIN 6.5 g/dL (6.4-8.2); eGFR NON BLACK RACES > 60 (>60)
[2021-06-29] MEDS: K-DUR TAB 20 MEQ PO PRN (08:44)
[2021-06-29] MEDS: MAGNESIUM SULFATE 1 GRAM/100 mL PREMIX 1 G/100 ML BAG IV PRN ×2 (08:46→10:32)
[2021-06-29] MEDS: WELLBUTRIN IR (PLAIN) PO SCH ×2 (09:06→20:20)
--- NOTE | 2021-06-29 16:19 | DR.PROGNOT ---
Hospital Progress Notes - Progress Note for Day of: Progress Note Date: 06/29/21 - Chief Complaint Chief Complaint: PO day 2. comfortable . still c/o moderate lower abdominal pain . mild drainage in EAN. normal CBC and CMP .. afebrile. . - Past Medical Family Social History Past Med/Fam/Surg Hx: No changes since H&P Allergies: Allergies No Known Drug Allergies Allergy (Verified 06/27/21 12:27) - Review Of Systems ROS: No change since H&P - Vital Signs Vital Signs: Temperature 98.7 F Pulse Rate [Right Radial] 68 Pulse Rate 83 Respiratory Rate 20 Blood Pressure [Right Arm] 133/94 Blood Pressure 110/56 O2 Sat by Pulse Oximetry 98 - Physical Exam Oriented: Normal, Time, Person, Place Eyes: Normal Ear: Normal Nose: Normal Throat: Normal Respiratory: Normal Cardiovascular: Normal : Normal GI:Auscultation: Normal GI:Palpation: Normal GI: Tenderness: Diffuse (soft, flat abdomen .diffuse tenderness .. BS +but hypoactive .. ), Other (EAN DRAIN, DRESSING CDI LAP SITES) Skin: Normal Musculoskeletal: Normal Psychiatric: Normal Mood Description: Calm Affect: Normal Speech Pattern: Clear, Appropriate - Laboratory and Diagnostics Result Diagrams: 06/29/21 05:33 06/29/21 05:33 Labs: Laboratory WBC 8.6 X10^3/uL (3.6-10.0) 06/29/21 05:33 RBC 3.81 X10^6/uL (4.7-6.0) L 06/29/21 05:33 Hgb 11.3 g/dL (13.5-18.0) L 06/29/21 05:33 Hct 32.5 % (42.0-54.0) L 06/29/21 05:33 MCV 85.3 fL (80.0-100.0) 06/29/21 05:33 MCH 29.6 pg (27.0-34.0) 06/29/21 05:33 MCHC 34.7 g/dL (33.0-35.0) 06/29/21 05:33 RDW 13.7 % (11.6-16.5) 06/29/21 05:33 Plt Count 185 X10^3/uL (150.0-450.0) 06/29/21 05:33 MPV 7.8 fL (7.4-11.0) 06/29/21 05:33 Neut % (Auto) 77.7 % (42.0-75.0) H 06/29/21 05:33 Lymph % (Auto) 13.1 % (21.0-51.0) L 06/29/21 05:33 [place] % (Auto) 6.4 % (0.0-13.0) 06/29/21 05:33 Eos % (Auto) 2.5 % (0.9-2.9) 06/29/21 05:33 Baso % (Auto) 0.3 % (0.2-1.0) 06/29/21 05:33 Neut # (Auto) 6.7 x10^3/uL (2.2-4.8) H 06/29/21 05:33 Lymph # (Auto) 1.1 X10^3/uL (1.3-2.9) L 06/29/21 05:33 [place] # (Auto) 0.6 x10^3/uL (0.3-0.8) 06/29/21 05:33 Eos # (Auto) 0.2 x10^3/uL (0.0-0.2) 06/29/21 05:33 Baso # (Auto) 0.0 X10^3/uL (0.0-0.1) 06/29/21 05:33 Absolute Nucleated RBC 0.1 /100WBC 06/29/21 05:33 PT 13.4 SECONDS (11.8-14.3) 06/27/21 14:00 INR Target Range - 06/27/21 14:00 INR 1.08 (0.8-1.3) 06/27/21 14:00 APTT 31.1 SECONDS (22.9-36.5) 06/27/21 14:00 PTT Comment - 06/27/21 14:00 Sodium 139 mmol/L (136-145) 06/29/21 05:33 Corrected Sodium TNP 06/29/21 05:33 Potassium 3.4 mmol/L (3.5-5.1) L 06/29/21 05:33 Chloride 104 mmol/L (98-107) 06/29/21 05:33 Carbon Dioxide 26.8 mmol/L (21-32) 06/29/21 05:33 BUN 10 mg/dL (7-18) 06/29/21 05:33 Creatinine 1.21 mg/dL (0.70-1.30) 06/29/21 05:33 Est GFR (MDRD) Af Amer > 60 (>60) 06/29/21 05:33 Est GFR (MDRD) Non-Af > 60 (>60) 06/29/21 05:33 Glucose 100 mg/dL (65-99) H 06/29/21 05:33 Calcium 8.2 mg/dL (8.5-10.1) L 06/29/21 05:33 Corrected Calcium 9.0 mg/dL (8.5-10.1) 06/29/21 05:33 Magnesium 1.9 mg/dL (1.7-2.9) 06/29/21 05:33 Total Bilirubin 0.70 mg/dL (0.2-1.0) 06/29/21 05:33 AST 20 Units/L (15-37) 06/29/21 05:33 ALT 21 Units/L (12-78) 06/29/21 05:33 Alkaline Phosphatase 58 Units/L (46-116) 06/29/21 05:33 Total Protein 6.5 g/dL (6.4-8.2) 06/29/21 05:33 Albumin 3.0 g/dL (3.4-5.0) L 06/29/21 05:33 Globulin 3.5 g/dL (2.5-4.5) 06/29/21 05:33 Albumin/Globulin Ratio 0.9 Ratio (1.1-2.1) L 06/29/21 05:33 Amylase 51 Units/L (25-115) 06/27/21 14:00 Lipase 103 Units/L (73-393) 06/27/21 14:00 Vasoact Intest Polypep Cancelled 06/27/21 14:00 Specimen Type Catherized urine 06/27/21 17:40 Urine Color Pale yellow (YELLOW) 06/27/21 17:40 Urine Appearance Clear (CLEAR) 06/27/21 17:40 Urine pH 5.0 (5.0 - 8.0) 06/27/21 17:40 Ur Specific Apex 1.020 (1.000-1.030) 06/27/21 17:40 Urine Protein 2+ (NEGATIVE) 06/27/21 17:40 Urine Glucose (UA) 1+ (NEGATIVE) 06/27/21 17:40 Urine Ketones Negative (NEGATIVE) 06/27/21 17:40 Urine Occult Blood 1+ (NEGATIVE) 06/27/21 17:40 Urine Nitrite Negative (NEGATIVE) 06/27/21 17:40 Urine Bilirubin Negative (NEGATIVE) 06/27/21 17:40 Urine Urobilinogen Normal (NORMAL) 06/27/21 17:40 Ur Leukocyte Esterase Negative (NEGATIVE) 06/27/21 17:40 Urine RBC 5-10 /HPF (0-3) A 06/27/21 17:40 Urine WBC 0-2 /HPF (0-5) 06/27/21 17:40 Ur Squamous Epith Cells Rare /HPF (NEGATIVE) 06/27/21 17:40 Amorphous Sediment Trace /HPF (NEGATIVE) 06/27/21 17:40 Urine Bacteria Trace /HPF (NEGATIVE) 06/27/21 17:40 Ur Culture Indicated? No/not indicated 06/27/21 17:40 SARS CoV-2 RNA Rapid VIVIAN Negative (NEGATIVE) 06/27/21 16:06 - Assessment and Plan 1: post op laparoscopy , irregation and drainage of pelvis . plication upper rectum with omentum .. to place on clear liquid , , IV ABT , OOB , DVT prophylaxis .. - Problem Patient Problems: Patient Problems Abdominal pain (Acute) R10.9 Perforated bowel (Acute) K63.1
--- NOTE | 2021-06-29 18:59 | PCM.PROG ---
Progress Note - Subjective Subjective: PATIENT IS A 60 YEAR OLD WM WHO WAS ADMITTED DUE TO PERFORATED BOWEL. PATIENT IS S/P LAP EXP LAP. PATIENT TOLERATED PROCEDURE WELL. PATIENT PAIN IS CONTROLLED, PATIENT REPORTS HE IS COMFORTABLE TODAY. NO OTHER CONCERNS AT PRESET. DRESSINGS CDI. EAN DRAIN INTACT, NGT D/C'D. - Past Medical Family Social History Past Med/Fam/Surg Hx: No changes since H&P Allergies: Allergies No Known Drug Allergies Allergy (Verified 06/27/21 12:27) - Review of Systems ROS: No change since H&P - Vital Signs and I&O's Vital Signs: Temperature 98.7 F Pulse Rate [Right Radial] 67 Pulse Rate 83 Respiratory Rate 20 Blood Pressure [Right Arm] 140/77 Blood Pressure 110/56 O2 Sat by Pulse Oximetry 99 Intake and Output: Intake & Output 06/26/21 06/27/21 06/28/21 06/29/21 23:59 23:59 23:59 23:59 Intake Total 4069 / 4069 2539 / 2539 2350 / 2350 Output Total 2565 / 2565 1385 / 1385 1030 / 1030 Balance 1504 / 1504 1154 / 1154 1320 / 1320 - Physical Exam Oriented: Normal, Time, Person, Place Eyes: Normal Ear: Normal Nose: Normal Throat: Normal Respiratory: Normal Cardiovascular: Normal : Normal Auscultation: Bowel Sounds: Normal Tenderness: Diffuse (soft, flat abdomen .diffuse tenderness .. BS +but hyp oactive .. ), Other (EAN DRAIN, DRESSING CDI LAP SITES) Skin: Normal Musculoskeletal: Normal Psychiatric: Normal Mood Description: Calm Affect: Normal Speech Pattern: Clear, Appropriate - Laboratory and Diagnostics Result Diagrams: 06/29/21 05:33 06/29/21 05:33 Labs: Laboratory WBC 8.6 X10^3/uL (3.6-10.0) 06/29/21 05:33 RBC 3.81 X10^6/uL (4.7-6.0) L 06/29/21 05:33 Hgb 11.3 g/dL (13.5-18.0) L 06/29/21 05:33 Hct 32.5 % (42.0-54.0) L 06/29/21 05:33 MCV 85.3 fL (80.0-100.0) 06/29/21 05:33 MCH 29.6 pg (27.0-34.0) 06/29/21 05:33 MCHC 34.7 g/dL (33.0-35.0) 06/29/21 05:33 RDW 13.7 % (11.6-16.5) 06/29/21 05:33 Plt Count 185 X10^3/uL (150.0-450.0) 06/29/21 05:33 MPV 7.8 fL (7.4-11.0) 06/29/21 05:33 Neut % (Auto) 77.7 % (42.0-75.0) H 06/29/21 05:33 Lymph % (Auto) 13.1 % (21.0-51.0) L 06/29/21 05:33 [place] % (Auto) 6.4 % (0.0-13.0) 06/29/21 05:33 Eos % (Auto) 2.5 % (0.9-2.9) 06/29/21 05:33 Baso % (Auto) 0.3 % (0.2-1.0) 06/29/21 05:33 Neut # (Auto) 6.7 x10^3/uL (2.2-4.8) H 06/29/21 05:33 Lymph # (Auto) 1.1 X10^3/uL (1.3-2.9) L 06/29/21 05:33 [place] # (Auto) 0.6 x10^3/uL (0.3-0.8) 06/29/21 05:33 Eos # (Auto) 0.2 x10^3/uL (0.0-0.2) 06/29/21 05:33 Baso # (Auto) 0.0 X10^3/uL (0.0-0.1) 06/29/21 05:33 Absolute Nucleated RBC 0.1 /100WBC 06/29/21 05:33 PT 13.4 SECONDS (11.8-14.3) 06/27/21 14:00 INR Target Range - 06/27/21 14:00 INR 1.08 (0.8-1.3) 06/27/21 14:00 APTT 31.1 SECONDS (22.9-36.5) 06/27/21 14:00 PTT Comment - 06/27/21 14:00 Sodium 139 mmol/L (136-145) 06/29/21 05:33 Corrected Sodium TNP 06/29/21 05:33 Potassium 3.4 mmol/L (3.5-5.1) L 06/29/21 05:33 Chloride 104 mmol/L (98-107) 06/29/21 05:33 Carbon Dioxide 26.8 mmol/L (21-32) 06/29/21 05:33 BUN 10 mg/dL (7-18) 06/29/21 05:33 Creatinine 1.21 mg/dL (0.70-1.30) 06/29/21 05:33 Est GFR (MDRD) Af Amer > 60 (>60) 06/29/21 05:33 Est GFR (MDRD) Non-Af > 60 (>60) 06/29/21 05:33 Glucose 100 mg/dL (65-99) H 06/29/21 05:33 Calcium 8.2 mg/dL (8.5-10.1) L 06/29/21 05:33 Corrected Calcium 9.0 mg/dL (8.5-10.1) 06/29/21 05:33 Magnesium 1.9 mg/dL (1.7-2.9) 06/29/21 05:33 Total Bilirubin 0.70 mg/dL (0.2-1.0) 06/29/21 05:33 AST 20 Units/L (15-37) 06/29/21 05:33 ALT 21 Units/L (12-78) 06/29/21 05:33 Alkaline Phosphatase 58 Units/L (46-116) 06/29/21 05:33 Total Protein 6.5 g/dL (6.4-8.2) 06/29/21 05:33 Albumin 3.0 g/dL (3.4-5.0) L 06/29/21 05:33 Globulin 3.5 g/dL (2.5-4.5) 06/29/21 05:33 Albumin/Globulin Ratio 0.9 Ratio (1.1-2.1) L 06/29/21 05:33 Amylase 51 Units/L (25-115) 06/27/21 14:00 Lipase 103 Units/L (73-393) 06/27/21 14:00 Vasoact Intest Polypep Cancelled 06/27/21 14:00 Specimen Type Catherized urine 06/27/21 17:40 Urine Color Pale yellow (YELLOW) 06/27/21 17:40 Urine Appearance Clear (CLEAR) 06/27/21 17:40 Urine pH 5.0 (5.0 - 8.0) 06/27/21 17:40 Ur Specific [place] 1.020 (1.000-1.030) 06/27/21 17:40 Urine Protein 2+ (NEGATIVE) 06/27/21 17:40 Urine Glucose (UA) 1+ (NEGATIVE) 06/27/21 17:40 Urine Ketones Negative (NEGATIVE) 06/27/21 17:40 Urine Occult Blood 1+ (NEGATIVE) 06/27/21 17:40 Urine Nitrite Negative (NEGATIVE) 06/27/21 17:40 Urine Bilirubin Negative (NEGATIVE) 06/27/21 17:40 Urine Urobilinogen Normal (NORMAL) 06/27/21 17:40 Ur Leukocyte Esterase Negative (NEGATIVE) 06/27/21 17:40 Urine RBC 5-10 /HPF (0-3) A 06/27/21 17:40 Urine WBC 0-2 /HPF (0-5) 06/27/21 17:40 Ur Squamous Epith Cells Rare /HPF (NEGATIVE) 06/27/21 17:40 Amorphous Sediment Trace /HPF (NEGATIVE) 06/27/21 17:40 Urine Bacteria Trace /HPF (NEGATIVE) 06/27/21 17:40 Ur Culture Indicated? No/not indicated 06/27/21 17:40 SARS CoV-2 RNA Rapid VIVIAN Negative (NEGATIVE) 06/27/21 16:06 - Plan (1) Abdominal pain Status: Acute (2) Perforated bowel Status: Acute Plan: FOLLOW GENERAL SURGEON RECOMMENDATIONS. NGT TO LIWS. NPO. REPEAT LABS. IV FLUIDS. CONT IV ABX
[2021-06-30] MEDS: NORCO 5/325 MG TAB PO PRN (02:00)
[2021-06-30] MEDS: FLAGYL IV PREMIX 500 MG BAG 500 MG/100 ML BAG IV SCH ×2 (02:14→08:23)
[2021-06-30] MEDS: ZOSYN VIAL 3.375 GRAMS 3.375 G in NS 100 ML IV + SPIKE MINIBAG* 100 ML IV SCH (05:16)
[2021-06-30 06:38] LABS: BASOPHILS % (AUTO) 0.2 % (0.2-1.0); EOSINOPHILS # (AUTO) 0.2 x10^3/uL (0.0-0.2); EOSINOPHILS % (AUTO) 3.1 % (0.9-2.9); HEMATOCRIT 32.1 % (42.0-54.0); HEMOGLOBIN 11.1 g/dL (13.5-18.0); LYMPHOCYTES # (AUTO) 0.7 X10^3/uL (1.3-2.9); LYMPHOCYTES % (AUTO) 10.4 % (21.0-51.0); MEAN CORPUSCULAR HEMOGLOBIN 29.8 pg (27.0-34.0); MEAN CORPUSCULAR HGB CONC 34.6 g/dL (33.0-35.0); MEAN CORPUSCULAR VOLUME 86.2 fL (80.0-100.0); MEAN PLATELET VOLUME 8.3 fL (7.4-11.0); MONOCYTES # (AUTO) 0.6 x10^3/uL (0.3-0.8); NEUTROPHILS # (AUTO) 5.6 x10^3/uL (2.2-4.8); NEUTROPHILS % (AUTO) 78.3 % (42.0-75.0); PLATELET COUNT 189 X10^3/uL (150.0-450.0); RED BLOOD COUNT 3.73 X10^6/uL (4.7-6.0); RED CELL DISTRIBUTION WIDTH 13.6 % (11.6-16.5); WHITE BLOOD COUNT 7.2 X10^3/uL (3.6-10.0)
[2021-06-30 06:44] LABS: ALANINE AMINOTRANSFERASE 20 Units/L (12-78); ALBUMIN 2.7 g/dL (3.4-5.0); ALKALINE PHOSPHATASE 71 Units/L (46-116); ASPARTATE AMINO TRANSFERASE 23 Units/L (15-37); BLOOD UREA NITROGEN 5 mg/dL (7-18); CALCIUM 8.1 mg/dL (8.5-10.1); CARBON DIOXIDE 25.8 mmol/L (21-32); CHLORIDE 107 mmol/L (98-107); COR CA(FOR HYPOALB) 9.1 mg/dL (8.5-10.1); COR NA(FOR HYPERGLY) 142 mmol/L (136-145); CREATININE 1.15 mg/dL (0.70-1.30); MAGNESIUM 2.2 mg/dL (1.7-2.9); SODIUM 141 mmol/L (136-145); TOTAL PROTEIN 6.2 g/dL (6.4-8.2); eGFR NON BLACK RACES > 60 (>60)
[2021-06-30] MEDS: D5 1/2 NS 1,000 ML 1,000 ML IV SCH (07:18)
[2021-06-30] MEDS: WELLBUTRIN IR (PLAIN) PO SCH (08:23)
[2021-06-30] MEDS: K-DUR TAB 20 MEQ PO PRN (08:23)
[2021-06-30 08:36] VITALS: BP 134/64
--- NOTE | 2021-06-30 10:18 | DR.PROGNOT ---
Hospital Progress Notes - Progress Note for Day of: Progress Note Date: 06/30/21 - Chief Complaint Chief Complaint: PO day 3. comfortable . only mild lower abdominal pain . no nausea .no fever . mild drainage in EAN. normal CBC and CMP .. afebrile. EAN was D/C ed. . - Past Medical Family Social History Past Med/Fam/Surg Hx: No changes since H&P Allergies: Allergies No Known Drug Allergies Allergy (Verified 06/27/21 12:27) - Review Of Systems ROS: No change since H&P - Vital Signs Vital Signs: Temperature 98 F Pulse Rate [Right Radial] 73 Pulse Rate 83 Respiratory Rate 20 Blood Pressure [Right Arm] 134/64 Blood Pressure 110/56 O2 Sat by Pulse Oximetry 96 - Physical Exam Oriented: Normal, Time, Person, Place Eyes: Normal Ear: Normal Nose: Normal Throat: Normal Respiratory: Normal Cardiovascular: Normal : Normal GI:Auscultation: Normal GI:Palpation: Normal GI: Tenderness: Diffuse (soft, flat abdomen .diffuse tenderness .. BS +but hypoactive .. ), Other (EAN DRAIN, DRESSING CDI LAP SITES) Skin: Normal Musculoskeletal: Normal Psychiatric: Normal Mood Description: Calm Affect: Normal Speech Pattern: Clear, Appropriate - Laboratory and Diagnostics Result Diagrams: 06/30/21 05:20 06/30/21 05:20 Labs: Laboratory WBC 7.2 X10^3/uL (3.6-10.0) 06/30/21 05:20 RBC 3.73 X10^6/uL (4.7-6.0) L 06/30/21 05:20 Hgb 11.1 g/dL (13.5-18.0) L 06/30/21 05:20 Hct 32.1 % (42.0-54.0) L 06/30/21 05:20 MCV 86.2 fL (80.0-100.0) 06/30/21 05:20 MCH 29.8 pg (27.0-34.0) 06/30/21 05:20 MCHC 34.6 g/dL (33.0-35.0) 06/30/21 05:20 RDW 13.6 % (11.6-16.5) 06/30/21 05:20 Plt Count 189 X10^3/uL (150.0-450.0) 06/30/21 05:20 MPV 8.3 fL (7.4-11.0) 06/30/21 05:20 Neut % (Auto) 78.3 % (42.0-75.0) H 06/30/21 05:20 Lymph % (Auto) 10.4 % (21.0-51.0) L 06/30/21 05:20 [place] % (Auto) 8.0 % (0.0-13.0) 06/30/21 05:20 Eos % (Auto) 3.1 % (0.9-2.9) H 06/30/21 05:20 Baso % (Auto) 0.2 % (0.2-1.0) 06/30/21 05:20 Neut # (Auto) 5.6 x10^3/uL (2.2-4.8) H 06/30/21 05:20 Lymph # (Auto) 0.7 X10^3/uL (1.3-2.9) L 06/30/21 05:20 [place] # (Auto) 0.6 x10^3/uL (0.3-0.8) 06/30/21 05:20 Eos # (Auto) 0.2 x10^3/uL (0.0-0.2) 06/30/21 05:20 Baso # (Auto) 0.0 X10^3/uL (0.0-0.1) 06/30/21 05:20 Absolute Nucleated RBC 0.0 /100WBC 06/30/21 05:20 PT 13.4 SECONDS (11.8-14.3) 06/27/21 14:00 INR Target Range - 06/27/21 14:00 INR 1.08 (0.8-1.3) 06/27/21 14:00 APTT 31.1 SECONDS (22.9-36.5) 06/27/21 14:00 PTT Comment - 06/27/21 14:00 Sodium 141 mmol/L (136-145) 06/30/21 05:20 Corrected Sodium 142 mmol/L (136-145) 06/30/21 05:20 Potassium 3.6 mmol/L (3.5-5.1) 06/30/21 05:20 Chloride 107 mmol/L (98-107) 06/30/21 05:20 Carbon Dioxide 25.8 mmol/L (21-32) 06/30/21 05:20 BUN 5 mg/dL (7-18) L 06/30/21 05:20 Creatinine 1.15 mg/dL (0.70-1.30) 06/30/21 05:20 Est GFR (MDRD) Af Amer > 60 (>60) 06/30/21 05:20 Est GFR (MDRD) Non-Af > 60 (>60) 06/30/21 05:20 Glucose 155 mg/dL (65-99) H 06/30/21 05:20 Calcium 8.1 mg/dL (8.5-10.1) L 06/30/21 05:20 Corrected Calcium 9.1 mg/dL (8.5-10.1) 06/30/21 05:20 Magnesium 2.2 mg/dL (1.7-2.9) 06/30/21 05:20 Total Bilirubin 0.50 mg/dL (0.2-1.0) 06/30/21 05:20 AST 23 Units/L (15-37) 06/30/21 05:20 ALT 20 Units/L (12-78) 06/30/21 05:20 Alkaline Phosphatase 71 Units/L (46-116) 06/30/21 05:20 Total Protein 6.2 g/dL (6.4-8.2) L 06/30/21 05:20 Albumin 2.7 g/dL (3.4-5.0) L 06/30/21 05:20 Globulin 3.5 g/dL (2.5-4.5) 06/30/21 05:20 Albumin/Globulin Ratio 0.8 Ratio (1.1-2.1) L 06/30/21 05:20 Amylase 51 Units/L (25-115) 06/27/21 14:00 Lipase 103 Units/L (73-393) 06/27/21 14:00 Vasoact Intest Polypep Cancelled 06/27/21 14:00 Specimen Type Catherized urine 06/27/21 17:40 Urine Color Pale yellow (YELLOW) 06/27/21 17:40 Urine Appearance Clear (CLEAR) 06/27/21 17:40 Urine pH 5.0 (5.0 - 8.0) 06/27/21 17:40 Ur Specific [place] 1.020 (1.000-1.030) 06/27/21 17:40 Urine Protein 2+ (NEGATIVE) 06/27/21 17:40 Urine Glucose (UA) 1+ (NEGATIVE) 06/27/21 17:40 Urine Ketones Negative (NEGATIVE) 06/27/21 17:40 Urine Occult Blood 1+ (NEGATIVE) 06/27/21 17:40 Urine Nitrite Negative (NEGATIVE) 06/27/21 17:40 Urine Bilirubin Negative (NEGATIVE) 06/27/21 17:40 Urine Urobilinogen Normal (NORMAL) 06/27/21 17:40 Ur Leukocyte Esterase Negative (NEGATIVE) 06/27/21 17:40 Urine RBC 5-10 /HPF (0-3) A 06/27/21 17:40 Urine WBC 0-2 /HPF (0-5) 06/27/21 17:40 Ur Squamous Epith Cells Rare /HPF (NEGATIVE) 06/27/21 17:40 Amorphous Sediment Trace /HPF (NEGATIVE) 06/27/21 17:40 Urine Bacteria Trace /HPF (NEGATIVE) 06/27/21 17:40 Ur Culture Indicated? No/not indicated 06/27/21 17:40 SARS CoV-2 RNA Rapid VIVIAN Negative (NEGATIVE) 06/27/21 16:06 - Assessment and Plan 1: post op laparoscopy , irregation and drainage of pelvis . plication upper rectum with omentum for perforated recto-sigmoid ... to advance to full liquid diet . , ,. oral Cipro 500 BID . may go home with f/u in 10 days .. . - Problem Patient Problems: Patient Problems Abdominal pain (Acute) R10.9 Perforated bowel (Acute) K63.1
== END 2021-06-30 10:20 | disposition home or self-care (01) | DRG 331 ==
LOC: ER 12:26 → MED/SURG 16:04
PROVIDERS: ADMIT Internal Medicine; ATTEND Internal Medicine
PROC: DIAGLAP (2021-06-27 18:55)
DX: Z20.822 Contact with and (suspected) exposure to COVID-19; F41.8 Other specified anxiety disorders; N42.89 Other specified disorders of prostate; E78.2 Mixed hyperlipidemia; I10 Essential (primary) hypertension; K63.1 Perforation of intestine (nontraumatic); R10.84 Generalized abdominal pain